=== PATIENT | female | born 1960 | race Caucasian/White ===

== ENCOUNTER → 2018-08-07 | Outpatient (CLI) | payer OTHER ==
[2018-08-07 15:03] LABS: ANION GAP 11 (8-16); BLOOD UREA NITROGEN 16 mg/dl (7-20); CALCIUM 9.4 mg/dl (8.4-10.2); CARBON DIOXIDE 29 mmol/L (21-31); CHLORIDE 105 mmol/L (97-110); CREATININE 0.64 mg/dl (0.44-1.00); GLUCOSE 105 mg/dl (70-220); SODIUM 141 mmol/L (135-144)
== END | disposition home or self-care (01) ==
LOC: LAB 14:22
DX: R07.9 Chest pain, unspecified (principal); R06.02 Shortness of breath
CPT/HCPCS: 80048

== ENCOUNTER → 2019-04-17 | Outpatient (CLI) | payer OTHER ==
[~2019-04-17] MED LIST: METOPROLOL 5 MG INJ; NITROGLYCERIN AEROSOL (4.9 GM)
[2019-04-17] MEDS: IOHEXOL 100 ML (15:20)
[2019-04-17] MEDS: SOD CHLORIDE 0.9% 100 ML (15:20)
== END | disposition home or self-care (01) ==
LOC: C/S 09:35
DX: R07.9 Chest pain, unspecified (principal)
CPT/HCPCS: 75571; 75571-59; 75574